=== PATIENT | female | born 1990 | race Caucasian/White ===

== ENCOUNTER 2016-09-06 21:59 | Emergency (ER) | payer OTHER ==
[2016-09-06 22:15] VITALS: BP 121/91
[2016-09-06] MEDS ORDERED: Ondansetron 4 MG/2 ML SDV IVPUSH ONE (23:01)
[2016-09-06] MEDS ORDERED: Sodium Chloride 0.9% 1,000 ML IV SCH (23:15)
--- NOTE | 2016-09-06 23:31 | EDM.PDOC ---
ED HPI GENERAL MEDICAL PROBLEM - General Chief Complaint: Gastrointestinal Problem Stated Complaint: VOMITING Time Seen by Provider: 09/06/16 22:35 Source of Information: Reports: Patient, Family History Limitations: Reports: No Limitations - History of Present Illness INITIAL COMMENTS - FREE TEXT/NARRATIVE: This is a 26-year-old female. She ate at [employer] around 2 PM this afternoon some shrimp and chicken broccoli and potatoes and then around 7:53 PM had onset of nausea and vomiting. She vomited up all the food she ate at 2 PM she says. Since that time she feels okay but she does periodically starts to vomit again more now clear liquid and bile. She is approximately 20 weeks had no problems with the denies any vaginal discharge or bleeding denies any abdominal pain. She had no history of morning sickness with this . As we spoke about her symptoms and the onset of the nausea and vomiting I believe it's related to the food that she ate not from her . 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 (see below) Other Treatments RESIDENTIAL FRAMING CARPENTER: dramamine - Related Data Allergies Allergy/AdvReac Type Severity Reaction Status Date / Time No Known Allergies Allergy Verified 09/06/16 22:10 Home Meds: Home Meds Ondansetron [Zofran ODT] 4 mg PO Q6H PRN #1 tab.dis 09/07/16 [Rx] Past Medical History - Past Health History Medical/Surgical History: Denies Medical/Surgical History Social & Family History - Family History Family Medical History: Noncontributory - Tobacco Use Smoking Status *Q: Never Smoker Second Hand Smoke Exposure: No - Caffeine Use Caffeine Use: Reports: Coffee - Recreational Drug Use Recreational Drug Use: No ED ROS GENERAL - Review of Systems Review Of Systems: See Below Constitutional: Reports: Fever, Chills HEENT: Reports: No Symptoms Respiratory: Denies: Shortness of Breath, Wheezing Cardiovascular: Reports: No Symptoms Endocrine: Reports: No Symptoms GI/Abdominal: Reports: Nausea, Vomiting, Other (Patient is gravid). Denies: Abdominal Pain, Diarrhea : Reports: No Symptoms Musculoskeletal: Reports: No Symptoms Skin: Reports: No Symptoms Neurological: Reports: No Symptoms Psychiatric: Reports: No Symptoms Hematologic/Lymphatic: Reports: No Symptoms Immunologic: Reports: No Symptoms ED EXAM, GI/ABD - Physical Exam Exam: See Below Exam Limited By: No Limitations General Appearance: Alert, WD/WN, No Apparent Distress Ears: Normal External Exam Nose: Normal Inspection Throat/Mouth: Normal Inspection, Normal Lips, Normal Voice Head: Normocephalic Neck: Supple Respiratory/Chest: No Respiratory Distress, Lungs Clear Cardiovascular: Regular Rate, Rhythm, No Murmur GI/Abdominal: Soft, Non-Tender, Other (Gravid uterus noted about belly button height) Back Exam: Full Range of Motion Extremities: Normal Inspection, Normal Range of Motion Neurological: Alert, Oriented Psychiatric: Normal Affect, Normal Mood Skin Exam: Warm, Dry Course - Vital Signs Last Recorded V/S: Last Vital Signs Temp 98.2 F 09/06/16 22:11 Pulse 82 09/06/16 22:11 Resp 18 09/06/16 22:11 BP 121/91 H 09/06/16 22:11 Pulse Ox 99 09/06/16 22:11 - Orders/Labs/Meds Orders: Active Orders 24 hr Category Date Time Status Sodium Chloride 0.9% [Normal Saline] 1,000 ml Med 09/06/16 23:15 Active IV ASDIRECTED Medication Orders Sodium Chloride (Normal Saline) 1,000 mls @ 1,000 mls/hr IV ASDIRECTED LISANDRO Last Admin: 09/06/16 23:24 Dose: 1,000 mls/hr Meds: Medications Generic Name Dose Route Start Last Admin Trade Name Freq PRN Reason Stop Dose Admin Sodium Chloride 1,000 mls @ 1,000 mls/hr 09/06/16 23:15 09/06/16 23:24 Normal Saline IV 1,000 mls/hr ASDIRECTED LISANDRO Administration Discontinued Medications Generic Name Dose Route Start Last Admin Trade Name Freq PRN Reason Stop Dose Admin Ondansetron HCl 4 mg 09/06/16 23:01 09/06/16 23:24 Zofran IVPUSH 09/06/16 23:02 4 mg ONETIME ONE Administration - Re-Assessments/Exams Free Text/Narrative Re-Assessment/Exam: 09/07/16 00:27 Patient is feeling good after the liter of fluids and we're going to let her go home Departure - Departure Time of Disposition: 00:27 Disposition: Home, Self-Care 01 Condition: Good Clinical Impression: Second trimester Nausea and vomiting Qualifiers: Vomiting type: unspecified Vomiting Intractability: non-intractable Qualified Code(s): R11.2 - Nausea with vomiting, unspecified Food poisoning Qualifiers: Encounter type: initial encounter Injury intent: accidental or unintentional Qualified Code(s): T62.91XA - Toxic effect of unspecified noxious substance eaten as food, accidental (unintentional), initial encounter - Discharge Information Referrals: Travis Wade MD [Primary Care Provider] - Forms: ED Department Discharge Additional Instructions: Drink lots of fluids over the next 24 hours and avoid sodas and caffeine, try to eat things are very easy to digest avoid meats and vegetables for the next 24 hours, if there is worsening of your symptoms or persistent nausea and vomiting return to the ER, follow up with your doctor later this week for recheck - My Orders Last 24 Hours: My Active Orders 09/06/16 23:15 Sodium Chloride 0.9% [Normal Saline] 1,000 ml IV ASDIRECTED - Assessment/Plan Last 24 Hours: My Active Orders 09/06/16 23:15 Sodium Chloride 0.9% [Normal Saline] 1,000 ml IV ASDIRECTED
[2016-09-07] MEDS ORDERED: Ondansetron 4 MG Tab.DIS PO ONE (00:32)
== END 2016-09-07 00:35 | disposition home or self-care (01) ==
LOC: JD.ED 21:59
DX: O21.9 Vomiting of pregnancy, unspecified (principal); O9A.212 Injury, poisoning and certain other consequences of external causes complicating pregnancy, second trimester; T62.91XA Toxic effect of unspecified noxious substance eaten as food, accidental (unintentional), initial encounter; Z3A.20 20 weeks gestation of pregnancy
CPT/HCPCS: 96361; 96374; 99284; A9270; J2405; J7040

== ENCOUNTER 2017-01-22 07:04 | Inpatient (IN) | payer MEDICAID, OTHER ==
[2017-01-22] MEDS ORDERED: Misoprostol 25 MCG (1/4 of 100 MCG) Tab ONE (07:59)
[2017-01-22] MEDS: Misoprostol 25 MCG (1/4 of 100 MCG) Tab VAG SCH ×4 (08:00→17:25)
[2017-01-22] MEDS ORDERED: Sodium Chloride 0.9% 10 ML Syringe FLUSH PRN (08:11)
[2017-01-22] MEDS ORDERED: Nalbuphine 20 MG/1 ML Amp IVPUSH PRN (08:11)
[2017-01-22] MEDS ORDERED: Oxytocin 10 Units/1 ML SDV IM ONE (08:11)
[2017-01-22] MEDS ORDERED: Ondansetron 4 MG/2 ML SDV IVPUSH PRN (08:11)
--- NOTE | 2017-01-22 08:24 | PCM.LDHP ---
L&D History of Present Illness - General Date of Service: 01/22/17 Admit Problem/Dx: Patient Status Order with Admit Dx/Problem 01/22/17 08:11 Patient Status [ADT] Routine Admission Diagnosis/Problem Admission Diagnosis/Problem Source of Information: Patient History Limitations: Reports: No Limitations - History of Present Illness Introduction:: 6-year-old ALICIA 01/24/2017 estimated gestational age 39 weeks 5 days presented to labor and delivery for induction of labor GBS negative and has had flu vaccine and TdAP. Oh positive, antibody screen negative. Hemoglobin hematocrit 07/10/1711.3/35.1 platelets 276,000 rubella titer immune, RPR nonreactive, urine culture mixed marilu, hepatitis B surface antigen negative, HIV negative, GC and chlamydia probe negative. 28 week labs on 10/21/16 hemoglobin 11.2 hematocrit 32.7 platelets 228,000, 1 hour OB glucose screen 91. Group B strep negative on 01/29/17. Admitted for induction of labor. Improves with: Reports: None Worsens with: Reports: None Associated Symptoms: Reports: N - Related Data Allergies/Adverse Reactions: Allergies Allergy/AdvReac Type Severity Reaction Status Date / Time No Known Allergies Allergy Verified 09/06/16 22:10 Past Medical History - Past Health History Medical/Surgical History: Denies Medical/Surgical History : 1 Para: 0 (0000) LMP (Approximate): Social & Family History - Family History Family Medical History: Noncontributory - Tobacco Use Smoking Status *Q: Never Smoker Second Hand Smoke Exposure: No - Caffeine Use Caffeine Use: Reports: Coffee - Recreational Drug Use Recreational Drug Use: No H&P Review of Systems - Review of Systems: Review Of Systems: See Below General: Reports: No Symptoms HEENT: Reports: No Symptoms Pulmonary: Reports: No Symptoms Cardiovascular: Reports: No Symptoms Gastrointestinal: Reports: No Symptoms Genitourinary: Reports: No Symptoms Musculoskeletal: Reports: No Symptoms Skin: Reports: No Symptoms Psychiatric: Reports: No Symptoms Neurological: Reports: No Symptoms Hematologic/Lymphatic: Reports: No Symptoms Immunologic: Reports: No Symptoms L&D Exam - Exam Exam: See Below - OB Specific Fundal Height In cm: 39 Movement: Active Heart Tones: Present Heart Tones per Min: 135 Heart Rate (FHR) Variability: Moderate (6-25 bmp) Presentation: Vertex - Samuels Score Samuels Score Cervix Position: Posterior Samuels Score Consistency: Soft Samuels Score Effacement: 31-50% Samuels Score Dilation: 1-2 cm Samuels Score 's Station: -1 ,0 Samuels Score Total: 6 - Exam General: Alert, Oriented HEENT: Conjunctiva Clear, Mucosa Moist & [place], PERRLA Neck: Supple, Trachea Midline Lungs: Clear to Auscultation, Normal Respiratory Effort Cardiovascular: Regular Rate, Regular Rhythm GI/Abdominal Exam: Normal Bowel Sounds, Soft, Non-Tender, No Organomegaly ( Except for gravid uterus.), No Distention, No Abnormal Bruit Genitourinary: Normal external exam, Normal bimanual exam, Normal speculum exam Extremities: Normal Inspection, Normal Range of Motion, Non-Tender, No Pedal Edema, Normal Capillary Refill Skin: Warm, Dry, Intact Neurological: Reflexes Equal Bilateral Psychiatric: Alert, Normal Affect, Normal Mood - Problem List (1) 39 weeks gestation of SNOMED Code(s): 54260019 ICD Code: Z3A.39 - 39 WEEKS GESTATION OF Status: Acute Current Visit: Yes Problem List Initiated/Reviewed/Updated: No Orders Last 24hrs: Active Orders 24 hr Category Date Time Status Patient Status [ADT] Routine ADT 01/22/17 08:11 Ordered Activity as Tolerated [RC] PFP Care 01/22/17 08:11 Ordered Communication Order [RC] ASDIRECTED Care 01/22/17 08:11 Ordered Heart Tones [RC] ASDIRECTED Care 01/22/17 08:12 Ordered Height and Weight [RC] UPON Care 01/22/17 08:11 Ordered Notify Provider [RC] PFP Care 01/22/17 08:11 Ordered Notify Provider [RC] PRN Care 01/22/17 08:11 Ordered Peripheral IV Care [RC] . DIRECTED Care 01/22/17 08:12 Ordered Pump Management, Intrathecal [RC] ASDIRECTED Care 01/22/17 08:13 Ordered Vital Signs [RC] PER UNIT ROUTINE Care 01/22/17 08:11 Ordered Clear Liquid Diet [DIET] Diet 01/22/17 Breakfast Ordered CBC W/O DIFF,HEMOGRAM [HEME] Stat Lab 01/22/17 08:11 Ordered TYPE AND SCREEN [BBK] Stat Lab 01/22/17 08:11 Ordered Lactated Ringers [Ringers, Lactated] 1,000 ml Med 01/22/17 08:15 Ordered IV ASDIRECTED Misoprostol [Cytotec] Med 01/22/17 08:15 Ordered 25 mcg VAG Q3H Nalbuphine [Nubain] Med 01/22/17 08:11 Ordered 10 mg IVPUSH Q2H PRN Ondansetron [Zofran] Med 01/22/17 08:11 Ordered 4 mg IVPUSH Q4H PRN Oxytocin [Pitocin] Med 01/22/17 08:11 Once 10 unit IM ONETIME ONE Oxytocin [Pitocin] 20 unit Med 01/22/17 08:15 Ordered Lactated Ringers [Ringers, Lactated] 1,000 ml IV TITRATE Sodium Chloride 0.9% [Saline Flush] Med 01/22/17 08:11 Ordered 10 ml FLUSH ASDIRECTED PRN Electronic Heart Tones Ext w TOCO [WOMSER] Oth 01/22/17 08:11 Ordered Routine Electronic Heart Tones Internal [WOMSER] Per Unit Oth 01/22/17 08:11 Ordered Routine Peripheral IV Insertion Adult [OM.PC] Routine Oth 01/22/17 08:11 Ordered Resuscitation Status Routine Resus Stat 01/22/17 08:11 Ordered
[2017-01-22] MEDS ORDERED: diphenhydrAMINE 50 MG/ML SDV IVPUSH PRN (09:16)
[2017-01-22] MEDS ORDERED: fentaNYL 100 MCG/2 ML SDV EPIDUR PRN (09:16)
[2017-01-22] MEDS ORDERED: ePHEDrine 50 MG/ML SDV IVPUSH PRN (09:16)
[2017-01-22] MEDS ORDERED: Bupivacaine/fentaNYL/NS 100 ML Bag EPIDUR SCH (09:30)
--- NOTE | 2017-01-22 12:38 | PCM.SN ---
- Free Text/Narrative Note: Cervix is unchanged at 1 cm, 50% effaced, soft, posterior, vertex -1 station. And has had second dose of Cytotec 25 g at 1100 hrs. Plan repeat cytotech at 1400 and 1700 hrs. and again probably at 2000 hrs. and then may be start Pitocin at midnight. Having irregular contractions but not feeling them. heart tones category 1.
--- NOTE | 2017-01-22 15:03 | PCM.SN ---
- Free Text/Narrative Note: Cervix unchanged at 1400 hrs. when third Cytotec placed. Will plan repeat Cytotec 25 g at 1700 and again at 2000 hrs. and then begin Pitocin at midnight. Talked with the patient about the plan.
[2017-01-22] MEDS ORDERED: Misoprostol 25 MCG (1/4 of 100 MCG) Tab VAG SCH (17:45)
[2017-01-22] MEDS ORDERED: Misoprostol 25 MCG (1/4 of 100 MCG) Tab VAG ONE (21:05)
[2017-01-23] MEDS ORDERED: Oxytocin/Lactated Ringers 10 UNIT/1,000 ML BAG IV SCH
[2017-01-23] MEDS: Lactated Ringers 1,000 ML IV SCH ×2 (00:18→05:16)
--- NOTE | 2017-01-23 04:26 | PCM.PREANE ---
Preanesthetic Assessment - Anesthesia/Transfusion/Family Hx Anesthesia History: No Prior Anesthesia Family History of Anesthesia Reaction: No Transfusion History: No Prior Transfusion(s) - Review of Systems General: No Symptoms Pulmonary: No Symptoms Cardiovascular: No Symptoms Gastrointestinal: No Symptoms Neurological: No Symptoms Other: Reports: None - Physical Assessment Respiratory Rate: 15 Vital Signs: Last Vital Signs Temp 36.8 C 01/22/17 08:11 Pulse 84 01/22/17 08:11 Resp 15 01/22/17 08:11 BP 134/81 01/22/17 08:11 Pulse Ox Height: 1.6 m Weight: 78.925 kg ASA Class: 2 Mental Status: Alert & Oriented x3 Airway Class: Mallampati = 1 Dentition: Reports: Normal Dentition Thyro-Mental Finger Breadths: 3 Mouth Opening Finger Breadths: 3 ROM/Head Extension: Full Lungs: Clear to Auscultation, Normal Respiratory Effort Cardiovascular: Regular Rate, Regular Rhythm - Lab Values: Laboratory Last Values WBC 7.68 K/mm3 (3.98-10.04) 01/22/17 08:31 RBC 3.89 M/mm3 (3.98-5.22) L 01/22/17 08:31 Hgb 12.0 gm/L (11.2-15.7) 01/22/17 08:31 Hct 34.7 % (34.1-44.9) 01/22/17 08:31 MCV 89.2 fl (79.4-94.8) 01/22/17 08:31 MCH 30.8 pg (25.6-32.2) 01/22/17 08:31 MCHC 34.6 g/dl (32.2-35.5) 01/22/17 08:31 RDW Std Deviation 40.7 fL (36.4-46.3) 01/22/17 08:31 Plt Count 202 K/mm3 (182-369) 01/22/17 08:31 MPV 9.9 fl (9.4-12.3) 01/22/17 08:31 Blood Type O POSITIVE 01/22/17 08:31 Gel Antibody Screen Negative 01/22/17 08:31 - Allergies Allergies/Adverse Reactions: Allergies Allergy/AdvReac Type Severity Reaction Status Date / Time No Known Allergies Allergy Verified 09/06/16 22:10 - Anesthesia Plan Pre-Op Medication Ordered: None - Acknowledgements Anesthesia Type Planned: Epidural Pt an Appropriate Candidate for the Planned Anesthesia: Yes Alternatives and Risks of Anesthesia Discussed w Pt/Guardian: Yes Pt/Guardian Understands and Agrees with Anesthesia Plan: Yes PreAnesthesia Questionnaire - Past Health History Medical/Surgical History: Denies Medical/Surgical History Gastrointestinal History: Reports: GERD 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 Smoking Status *Q: Never Smoker Second Hand Smoke Exposure: No Recreational Drug Use History: No - CURRENT (IN HOUSE) MEDS Current Meds: Current Medications Diphenhydramine HCl (Benadryl) 25 mg IVPUSH Q6H PRN PRN Reason: Itching Ephedrine Sulfate (Ephedrine Sulfate) 5 mg IVPUSH ASDIRECTED PRN PRN Reason: HYPOTENTSION Fentanyl (Sublimaze) 100 mcg EPIDUR Q3H PRN PRN Reason: PAIN Last Admin: 01/23/17 04:21 Dose: 100 mcg Fentanyl/Bupivacaine HCl (Fentanyl/Bupivacaine/Ns 2 Mcg-0.125% 100 Ml) 100 ml EPIDUR ASDIRECTED LISANDRO Last Admin: 01/23/17 04:22 Dose: 100 ml Lactated Ringer's (Ringers, Lactated) 1,000 mls @ 100 mls/hr IV ASDIRECTED LISANDRO Last Admin: 01/23/17 00:18 Dose: 100 mls/hr Oxytocin 20 unit/ Lactated (Ringer's) 1,002 mls @ 6.01 mls/hr IV TITRATE LISANDRO; 2 MUNITS/MIN PRN Reason: Protocol Oxytocin 20 unit/ Lactated (Ringer's) 1,002 mls @ 500 mls/hr IV TITRATE LISANDRO Oxytocin/Lactated Ringer's (Pitocin In Lr 10 Units/1,000 Ml) 10 unit in 1,000 mls @ 12 mls/hr IV TITRATE LISANDRO; 2 MUNITS/MIN PRN Reason: Protocol Last Titration: 01/23/17 01:49 Dose: 5 munits/min, 30 mls/hr Misoprostol (Cytotec) 25 mcg VAG .ONETIME LISANDRO Nalbuphine HCl (Nubain) 10 mg IVPUSH Q2H PRN PRN Reason: Pain (moderate 4-6) Ondansetron HCl (Zofran) 4 mg IVPUSH Q4H PRN PRN Reason: Nausea/Vomiting Sodium Chloride (Saline Flush) 10 ml FLUSH ASDIRECTED PRN PRN Reason: Keep Vein Open Discontinued Medications Misoprostol (Cytotec) Confirm Administered Dose 25 mcg .ROUTE .STK-MED ONE Stop: 01/22/17 08:00 Last Admin: 01/22/17 17:36 Dose: Not Given Misoprostol (Cytotec) 25 mcg VAG Q3H LISANDRO Stop: 01/22/17 17:16 Last Admin: 01/22/17 17:25 Dose: 25 mcg Misoprostol (Cytotec) 25 mcg VAG ONETIME ONE Stop: 01/22/17 21:06 Last Admin: 01/22/17 21:18 Dose: 25 mcg Oxytocin (Pitocin) 10 unit IM ONETIME ONE Stop: 01/22/17 08:12
[2017-01-23] MEDS ORDERED: Lidocaine 1% 50 ML MDV ONE (07:29)
[2017-01-23] MEDS ORDERED: Misoprostol 200 MCG Tab ONE ×2 (07:34→07:35)
[2017-01-23] MEDS ORDERED: Methylergonovine 0.2 MG/1 ML Amp ONE (07:48)
--- NOTE | 2017-01-23 08:04 | PCM.DEL ---
L & D Note - General Info Date of Service: 01/23/17 Mother's Due Date: 01/24/17 - Delivery Note Labor: Spontaneous, Augmented by Oxytocin Cervical Ripening Method: Misoprostil Delivery Outcome: Livebirth (Male liveborn 0728 hrs. on Thursday01/23/17 at 0728 hrs. VIANCA. Weight 3300 g/7 pounds 4.4 ounces Apgars 8/9. Nuchal cord 1 tight) Delivery Method: Spontaneous Vaginal Delivery-Single Delivery Mode: Spontaneous Presentation: Left Occiput Anterior (VIANCA) Nuchal Cord: Present (Tight reduced over shoulders.) Prep: Povidone-Iodine (Betadine Anesthesia Type: Local, Epidural Anesthetic: Lidocaine (Xylocaine) 1% Plain (15 mL total) Amniotic Fluid Description: Clear Episiotomy Type: None Laceration: 1st Degree (Midline sutured and 2 labia minora medial at the level of the urethra not sutured not bleeding) Suture type: Vicryl (301), Other (Monocryl 30 2) Suture size: 3-0 Placenta: Intact, Spontaneous (Placenta delivered at 0732 hrs. on Thursday, Hilda, examined and tacked discarded central cord insertion.) Cord: 3 Vessels Estimated Blood Loss: 750 (Massage Cytotec 4 g buccal Methergine 0.2 IM oxytocin dilute 20 per 1000) Resuscitation Needed: No : Suctioned, Bulb Syringe, Stimulated, Warmed, [place] Used, Warmer Used Provider: Travis Wade Score 1 min: 8 Score 5 min: 9 - Patient Data Vitals - Most Recent: Last Vital Signs Temp 98.3 F 01/22/17 08:11 Pulse 84 01/22/17 08:11 Resp 15 01/23/17 04:26 BP 134/81 01/22/17 08:11 Pulse Ox Weight - Most Recent: 174 lb Lab Results Last 24 Hours: Laboratory Results - last 24 hr 01/22/17 01/22/17 Range/Units 08:31 08:31 WBC 7.68 (3.98-10.04) K/mm3 RBC 3.89 L (3.98-5.22) M/mm3 Hgb 12.0 (11.2-15.7) gm/L Hct 34.7 (34.1-44.9) % MCV 89.2 (79.4-94.8) fl MCH 30.8 (25.6-32.2) pg MCHC 34.6 (32.2-35.5) g/dl RDW Std Deviation 40.7 (36.4-46.3) fL Plt Count 202 (182-369) K/mm3 MPV 9.9 (9.4-12.3) fl Blood Type O POSITIVE Gel Antibody Screen Negative Med Orders - Current: Current Medications Diphenhydramine HCl (Benadryl) 25 mg IVPUSH Q6H PRN PRN Reason: Itching Ephedrine Sulfate (Ephedrine Sulfate) 5 mg IVPUSH ASDIRECTED PRN PRN Reason: HYPOTENTSION Fentanyl (Sublimaze) 100 mcg EPIDUR Q3H PRN PRN Reason: PAIN Last Admin: 01/23/17 04:21 Dose: 100 mcg Fentanyl/Bupivacaine HCl (Fentanyl/Bupivacaine/Ns 2 Mcg-0.125% 100 Ml) 100 ml EPIDUR ASDIRECTED LISANDRO Last Admin: 01/23/17 04:22 Dose: 100 ml Lactated Ringer's (Ringers, Lactated) 1,000 mls @ 100 mls/hr IV ASDIRECTED LISANDRO Last Admin: 01/23/17 05:16 Dose: 100 mls/hr Oxytocin 20 unit/ Lactated (Ringer's) 1,002 mls @ 6.01 mls/hr IV TITRATE LISANDRO; 2 MUNITS/MIN PRN Reason: Protocol Oxytocin 20 unit/ Lactated (Ringer's) 1,002 mls @ 500 mls/hr IV TITRATE LISANDRO Oxytocin/Lactated Ringer's (Pitocin In Lr 10 Units/1,000 Ml) 10 unit in 1,000 mls @ 12 mls/hr IV TITRATE LISANDRO; 2 MUNITS/MIN PRN Reason: Protocol Last Titration: 01/23/17 01:49 Dose: 5 munits/min, 30 mls/hr Misoprostol (Cytotec) 25 mcg VAG .ONETIME LISANDRO Nalbuphine HCl (Nubain) 10 mg IVPUSH Q2H PRN PRN Reason: Pain (moderate 4-6) Ondansetron HCl (Zofran) 4 mg IVPUSH Q4H PRN PRN Reason: Nausea/Vomiting Sodium Chloride (Saline Flush) 10 ml FLUSH ASDIRECTED PRN PRN Reason: Keep Vein Open Discontinued Medications Lidocaine HCl (Xylocaine 1%) Confirm Administered Dose 50 ml .ROUTE .STK-MED ONE Stop: 01/23/17 07:30 Methylergonovine Maleate (Methergine) Confirm Administered Dose 0.2 mg .ROUTE .STK-MED ONE Stop: 01/23/17 07:49 Misoprostol (Cytotec) Confirm Administered Dose 25 mcg .ROUTE .STK-MED ONE Stop: 01/22/17 08:00 Last Admin: 01/22/17 17:36 Dose: Not Given Misoprostol (Cytotec) 25 mcg VAG Q3H LISANDRO Stop: 01/22/17 17:16 Last Admin: 01/22/17 17:25 Dose: 25 mcg Misoprostol (Cytotec) 25 mcg VAG ONETIME ONE Stop: 01/22/17 21:06 Last Admin: 01/22/17 21:18 Dose: 25 mcg Misoprostol (Cytotec) Confirm Administered Dose 200 mcg .ROUTE .STK-MED ONE Stop: 01/23/17 07:35 Misoprostol (Cytotec) Confirm Administered Dose 200 mcg .ROUTE .STK-MED ONE Stop: 01/23/17 07:36 Oxytocin (Pitocin) 10 unit IM ONETIME ONE Stop: 01/22/17 08:12 - Problem List & Annotations (1) 39 weeks gestation of SNOMED Code(s): 02759132 Code(s): Z3A.39 - 39 WEEKS GESTATION OF Status: Acute Current Visit: Yes (2) First degree laceration of perineum, delivered, current hospitalization SNOMED Code(s): 854660962 Code(s): O70.0 - FIRST DEGREE PERINEAL LACERATION DURING DELIVERY Status: Acute Current Visit: Yes (3) Nuchal cord with compression, delivered, current hospitalization SNOMED Code(s): 027780060 Code(s): O69.1XX0 - LABOR AND DELIVERY COMP BY CORD AROUND NECK, W COMPRSN, UNSP Status: Acute Current Visit: Yes - Problem List Review Problem List Initiated/Reviewed/Updated: No - My Orders Last 24 Hours: My Active Orders 01/22/17 08:11 Patient Status [ADT] Routine Activity as Tolerated [RC] PFP Communication Order [RC] ASDIRECTED Height and Weight [RC] UPON Notify Provider [RC] PFP Notify Provider [RC] PRN Vital Signs [RC] PER UNIT ROUTINE Nalbuphine [Nubain] 10 mg IVPUSH Q2H PRN Ondansetron [Zofran] 4 mg IVPUSH Q4H PRN Sodium Chloride 0.9% [Saline Flush] 10 ml FLUSH ASDIRECTED PRN Electronic Heart Tones Ext w TOCO [WOMSER] Routine Electronic Heart Tones Internal [WOMSER] Per Unit Routine Peripheral IV Insertion Adult [OM.PC] Routine Resuscitation Status Routine 01/22/17 08:12 Heart Tones [RC] ASDIRECTED Peripheral IV Care [RC] . DIRECTED 01/22/17 08:13 Pump Management, Intrathecal [RC] ASDIRECTED 01/22/17 08:15 Lactated Ringers [Ringers, Lactated] 1,000 ml IV ASDIRECTED Oxytocin [Pitocin] 20 unit Lactated Ringers [Ringers, Lactated] 1,000 ml IV TITRATE 01/22/17 17:45 Misoprostol [Cytotec] 25 mcg VAG .ONETIME Oxytocin [Pitocin] 20 unit Lactated Ringers [Ringers, Lactated] 1,000 ml IV TITRATE 01/22/17 Breakfast Clear Liquid Diet [DIET] 01/23/17 00:00 Oxytocin/Lactated Ringers [Pitocin in LR 10 Units/1,000 ML] 10 unit in 1,000 ml IV TITRATE
[2017-01-23] MEDS ORDERED: Methylergonovine 0.2 MG/1 ML Amp IM PRN (08:18)
[2017-01-23] MEDS ORDERED: Misoprostol 200 MCG Tab PO STA (08:29)
[2017-01-23] MEDS ORDERED: Lidocaine 1% 50 ML MDV INJECT ONE (08:30)
[2017-01-23] MEDS ORDERED: Simethicone 80 MG Tab.Chew PO PRN (08:54)
[2017-01-23] MEDS ORDERED: Lanolin 100% Cream 7 GM Tube TOP PRN (08:54)
[2017-01-23] MEDS ORDERED: Docusate Sodium 100 MG Cap PO PRN (08:54)
[2017-01-23] MEDS ORDERED: Benzocaine/Menthol 20%-0.5% Spray 56 GM Canister TOP PRN (08:54)
[2017-01-23] MEDS ORDERED: Witch Hazel Medicated Pads 100/Jar TOP PRN (08:54)
[2017-01-23] MEDS ORDERED: Acetaminophen 325 MG Tab PO PRN (08:54)
[2017-01-23] MEDS ORDERED: Acetaminophen/oxyCODONE 325-5 MG Tab PO PRN (08:54)
[2017-01-23] MEDS ORDERED: Bupivacaine 0.25% 10 ML SDV ONE (09:00)
--- NOTE | 2017-01-23 15:22 | PCM48HPAN ---
Post Anesthesia Note - EVALUATION WITHIN 48HRS OF ANESTHETIC Vital Signs in Normal Range: Yes Patient Participated in Evaluation: Yes Respiratory Function Stable: Yes Airway Patent: Yes Cardiovascular Function Stable: Yes Hydration Status Stable: Yes Pain Control Satisfactory: Yes Nausea and Vomiting Control Satisfactory: Yes Mental Status Recovered: Yes - COMMENTS/OBSERVATIONS Free Text/Narrative:: Kathrine is up walking. She denies headache, back pain, and/or numbness and tingling in her legs. No further questions at this time. No complications noted.
[2017-01-23] MEDS: Ibuprofen 600 MG Tab PO PRN (15:25)
[2017-01-24 06:33] VITALS: BP 103/54
--- NOTE | 2017-01-24 10:07 | PCM.SN ---
- Free Text/Narrative Note: Post Progress Note PPD # 1 Subjective: Doing well overall. Ambulating without difficulty. Denies any dizziness or lightheadedness. Lochia minimal and decreasing throughout the day. Voiding without difficulty. Tolerating regular diet. Pain controlled with oral medications. Breast feeding with minimal difficulty. Denies any fevers or chills Objective: Vitals: Last Vital Signs Temp 36.7 C 01/24/17 04:17 Pulse 95 01/24/17 04:17 Resp 14 01/24/17 04:17 BP 103/54 L 01/24/17 04:17 Pulse Ox 98 01/24/17 04:17 Physical Exam General: Alert and oriented, no acute distress Lungs: Clear to auscultation bilaterally Heart: Regular rate and rhythm Abdomen: Soft, minimal appropriate tenderness, non-distended, fundus midline, nontender, and below the umbilicus Extremities: No edema ASSESSMENT: 26-year-old female G 1 P 1001 s/p normal vaginal delivery PPD #1, complicated by hemorrhage PLAN: Doing well Breast feeding with minimal difficulty. Assist as needed Lochia minimal. Continue to monitor for appropriate lochia. Continue routine care Anticipate discharge home today Rohan Boyle MD 10:06 AM 01/24/2017
--- NOTE | 2017-01-24 10:10 | PCM.DCSUM1 ---
Discharge Summary - Hospital Course Free Text/Narrative:: Labor: Spontaneous, Augmented by Oxytocin Cervical Ripening Method: Misoprostil Delivery Outcome: Livebirth (Male liveborn 0728 hrs. on Thursday01/23/17 at 0728 hrs. VIANCA. Weight 3300 g/7 pounds 4.4 ounces Apgars 8/9. Nuchal cord 1 tight) Delivery Method: Spontaneous Vaginal Delivery-Single Infant Delivery Mode: Spontaneous Presentation: Left Occiput Anterior (VIANCA) Nuchal Cord: Present (Tight reduced over shoulders.) Prep: Povidone-Iodine (Betadine Anesthesia Type: Local, Epidural Anesthetic: Lidocaine (Xylocaine) 1% Plain (15 mL total) Amniotic Fluid Description: Clear Episiotomy Type: None Laceration: 1st Degree (Midline sutured and 2 labia minora medial at the level of the urethra not sutured not bleeding) Suture type: Vicryl (301), Other (Monocryl 30 2) Suture size: 3-0 Placenta: Intact, Spontaneous (Placenta delivered at 0732 hrs. on Thursday, Hilda, examined and tacked discarded central cord insertion.) Cord: 3 Vessels Estimated Blood Loss: 750 (Massage Cytotec 4 g buccal Methergine 0.2 IM oxytocin dilute 20 per 1000) Resuscitation Needed: No [place]: Suctioned, Bulb Syringe, Stimulated, Warmed, Lamont Used, Warmer Used Provider: Travis Wade Score 1 min: 8 Score 5 min: 9 HPI Initial Comments: Labor: Spontaneous, Augmented by Oxytocin Cervical Ripening Method: Misoprostil Delivery Outcome: Livebirth (Male liveborn 0728 hrs. on Thursday01/23/17 at 0728 hrs. VIANCA. Weight 3300 g/7 pounds 4.4 ounces Apgars 8/9. Nuchal cord 1 tight) Delivery Method: Spontaneous Vaginal Delivery-Single Infant Delivery Mode: Spontaneous Presentation: Left Occiput Anterior (VIANCA) Nuchal Cord: Present (Tight reduced over shoulders.) Prep: Povidone-Iodine (Betadine Anesthesia Type: Local, Epidural Anesthetic: Lidocaine (Xylocaine) 1% Plain (15 mL total) Amniotic Fluid Description: Clear Episiotomy Type: None Laceration: 1st Degree (Midline sutured and 2 labia minora medial at the level of the urethra not sutured not bleeding) Suture type: Vicryl (301), Other (Monocryl 30 2) Suture size: 3-0 Placenta: Intact, Spontaneous (Placenta delivered at 0732 hrs. on Thursday, Hilda, examined and tacked discarded central cord insertion.) Cord: 3 Vessels Estimated Blood Loss: 750 (Massage Cytotec 4 g buccal Methergine 0.2 IM oxytocin dilute 20 per 1000) Resuscitation Needed: No : Suctioned, Bulb Syringe, Stimulated, Warmed, Lamont Used, Warmer Used Provider: Travis Wade Score 1 min: 8 Score 5 min: 9 Brief History: Labor: Spontaneous, Augmented by Oxytocin. Cervical Ripening Method: Misoprostil. Delivery Outcome: Livebirth (Male liveborn 0728 hrs. on Thursday01/23/17 at 0728 hrs. VIANCA. Weight 3300 g/7 pounds 4.4 ounces Apgars 8/9. Nuchal cord 1 tight). Delivery Method: Spontaneous Vaginal Delivery- Single. Infant Delivery Mode: Spontaneous. Presentation: Left Occiput Anterior (VIANCA). Nuchal Cord: Present (Tight reduced over shoulders.). Prep: Povidone-Iodine (Betadine. Anesthesia Type: Local, Epidural. Anesthetic: Lidocaine (Xylocaine) 1% Plain (15 mL total). Amniotic Fluid Description: Clear. Episiotomy Type: None. Laceration: 1st Degree (Midline sutured and 2 labia minora medial at the level of the urethra not sutured not bleeding). Suture type: Vicryl (301), Other (Monocryl 30 2). Suture size: 3-0. Placenta : Intact, Spontaneous (Placenta delivered at 0732 hrs. on Thursday01/23/17, Hilda, examined and tacked discarded central cord insertion.). Cord: 3 Vessels. Estimated Blood Loss: 750 (Massage Cytotec 4 g buccal Methergine 0.2 IM oxytocin dilute 20 per 1000). Resuscitation Needed: No. [place]: Suctioned , Bulb Syringe, Stimulated, Warmed, Lamont Used, Warmer Used. Provider: Travis Wade. Score 1 min: 8. Score 5 min: 9 - Discharge Data Discharge Date: 01/24/17 Discharge Disposition: Home, Self-Care 01 Condition: Good - Discharge Diagnosis/Problem(s) (1) hemorrhage SNOMED Code(s): 19921755 ICD Code: O72.1 - OTHER IMMEDIATE HEMORRHAGE Status: Acute Current Visit: Yes (2) Vaginal delivery SNOMED Code(s): 171418927 ICD Code: O80 - ENCOUNTER FOR FULL-TERM UNCOMPLICATED DELIVERY Status: Acute Current Visit: Yes (3) 39 weeks gestation of SNOMED Code(s): 49907063 ICD Code: Z3A.39 - 39 WEEKS GESTATION OF Status: Acute Current Visit: Yes (4) First degree laceration of perineum, delivered, current hospitalization SNOMED Code(s): 895044394 ICD Code: O70.0 - FIRST DEGREE PERINEAL LACERATION DURING DELIVERY Status: Acute Current Visit: Yes (5) Nuchal cord with compression, delivered, current hospitalization SNOMED Code(s): 500778069 ICD Code: O69.1XX0 - LABOR AND DELIVERY COMP BY CORD AROUND NECK, W COMPRSN, UNSP Status: Acute Current Visit: Yes - Patient Summary/Data Operative Procedure(s) Performed: None Complications: hemorrhage Consults: None Hospital Course: Labor: Spontaneous, Augmented by Oxytocin Cervical Ripening Method: Misoprostil Delivery Outcome: Livebirth (Male liveborn 0728 hrs. on Thursday01/23/17 at 0728 hrs. VIANCA. Weight 3300 g/7 pounds 4.4 ounces Apgars 8/9. Nuchal cord 1 tight) Delivery Method: Spontaneous Vaginal Delivery-Single Delivery Mode: Spontaneous Presentation: Left Occiput Anterior (VIANCA) Nuchal Cord: Present (Tight reduced over shoulders.) Prep: Povidone-Iodine (Betadine Anesthesia Type: Local, Epidural Anesthetic: Lidocaine (Xylocaine) 1% Plain (15 mL total) Amniotic Fluid Description: Clear Episiotomy Type: None Laceration: 1st Degree (Midline sutured and 2 labia minora medial at the level of the urethra not sutured not bleeding) Suture type: Vicryl (301), Other (Monocryl 30 2) Suture size: 3-0 Placenta: Intact, Spontaneous (Placenta delivered at 0732 hrs. on Thursday, Hilda examined and tacked discarded central cord insertion.) Cord: 3 Vessels Estimated Blood Loss: 750 (Massage Cytotec 4 g buccal Methergine 0.2 IM oxytocin dilute 20 per 1000) Resuscitation Needed: No [place]: Suctioned, Bulb Syringe, Stimulated, Warmed, Lamont Used, Warmer Used Provider: Travis Wade Score 1 min: 8 Score 5 min: 9 Patient did well following delivery. She was meeting all milestones. She was ambulating without difficulty. She was tolerating regular diet without any nausea or vomiting. Her lochia was minimal. She denied any fevers or chills. She is breast-feeding without difficulty. She desired to be discharged home in the morning of day #1. She will follow up with Dr. Wade in 2 weeks or earlier as needed for her routine visit. - Patient Instructions Diet: Regular Diet as Tolerated Activity: As Tolerated Activity, Other: Nothing in the vagina for 2 weeks. Driving: May Drive Today Showering/Bathing: May Shower, No Tub Bathing/Swimming Notify Provider of: Fever, Increased Pain, Swelling and Redness, Drainage, Nausea and/or Vomiting - Discharge Plan Home Medications: Home Meds Acetaminophen [Tylenol] 650 mg PO Q6H PRN tablet 01/24/17 [Rx] Benzocaine/Menthol [Dermoplast Pain Relief [place]] 1 spray TOP ASDIRECTED PRN canister 01/24/17 [Rx] Docusate Sodium [Colace] 100 mg PO BID PRN cap 01/24/17 [Rx] Ferrous Sulfate 325 mg PO BIDMEALS tablet 01/24/17 [Rx] Ibuprofen [IJD: Ibuprofen] 600 mg PO Q6H PRN tablet 01/24/17 [Rx] Lanolin [Lansinoh HPA] 1 applic TOP ASDIRECTED PRN tube 01/24/17 [Rx] Witch [place] [Tucks] 1 pad TOP ASDIRECTED PRN pad 01/24/17 [Rx] Patient Handouts: Hemorrhage, Vaginal Delivery, Vaginal Laceration, Home Care Instructions for Mom, Vaginal Delivery, Care After, Pelvic Rest, Care of a Perineal Tear Referrals: Travis Wade MD [Primary Care Provider] - (Follow-up in 2 weeks or earlier as needed for visit.) - Discharge Summary/Plan Comment DC Time >30 min.: No - Patient Data Vitals - Most Recent: Last Vital Signs Temp 36.7 C 01/24/17 04:17 Pulse 95 01/24/17 04:17 Resp 14 01/24/17 04:17 BP 103/54 L 01/24/17 04:17 Pulse Ox 98 01/24/17 04:17 Weight - Most Recent: 78.925 kg I&O - Last 24 hours: Intake & Output 01/23/17 01/24/17 01/24/17 22:59 06:59 14:59 Intake Total 120 Balance 120 Lab Results - Last 24 hrs: Laboratory Results - last 24 hr 01/24/17 Range/Units 05:14 WBC 9.64 (3.98-10.04) K/mm3 RBC 2.75 L (3.98-5.22) M/mm3 Hgb 8.5 L (11.2-15.7) gm/L Hct 24.9 L (34.1-44.9) % MCV 90.5 (79.4-94.8) fl MCH 30.9 (25.6-32.2) pg MCHC 34.1 (32.2-35.5) g/dl RDW Std Deviation 40.1 (36.4-46.3) fL Plt Count 170 L (182-369) K/mm3 MPV 10.0 (9.4-12.3) fl Neut % (Auto) 65.7 (34.0-71.1) % Lymph % (Auto) 22.1 (19.3-51.7) % [place] % (Auto) 11.6 (4.7-12.5) % Eos % (Auto) 0.4 L (0.7-5.8) Baso % (Auto) 0.2 (0.1-1.2) % Neut # (Auto) 6.33 H (1.56-6.13) K/mm3 Lymph # (Auto) 2.13 (1.18-3.74) K/mm3 [place] # (Auto) 1.12 H (0.24-0.36) K/mm3 Eos # (Auto) 0.04 (0.04-0.36) K/mm3 Baso # (Auto) 0.02 (0.01-0.08) K/mm3 Med Orders - Current: Current Medications Acetaminophen (Tylenol) 650 mg PO Q4H PRN PRN Reason: mild pain or fever Benzocaine/Menthol (Dermoplast Pain Relief [place]) 0 gm TOP ASDIRECTED PRN PRN Reason: Perineal Comfort Measure Last Admin: 01/23/17 11:26 Dose: 1 can Docusate Sodium (Colace) 100 mg PO BID PRN PRN Reason: Constipation Emollient Ointment (Lansinoh Hpa) 0 gm TOP ASDIRECTED PRN PRN Reason: Sore Nipples Last Admin: 01/23/17 21:16 Dose: 1 applic Ferrous Sulfate (Ferrous Sulfate) 325 mg PO BIDMEALS LSIANDRO Ibuprofen (Motrin) 600 mg PO Q4H PRN PRN Reason: Mild pain or fever Last Admin: 01/23/17 15:25 Dose: 600 mg Methylergonovine Maleate (Methergine) 0.2 mg IM Q4H PRN PRN Reason: Bleeding Last Admin: 01/23/17 08:32 Dose: 0.2 mg Oxycodone/Acetaminophen (Percocet 325-5 Mg) 1 tab PO Q4H PRN PRN Reason: Pain (moderate 4-6) Simethicone (Simethicone) 80 mg PO Q4H PRN PRN Reason: Gas Witch [place] (Tucks) 1 pad TOP ASDIRECTED PRN PRN Reason: Hemorrhoid pain Last Admin: 01/23/17 11:26 Dose: 1 tub Discontinued Medications Bupivacaine HCl (Sensorcaine-Mpf 0.25%) 10 ml .ROUTE .K-MED ONE Stop: 01/23/17 09:01 Diphenhydramine HCl (Benadryl) 25 mg IVPUSH Q6H PRN PRN Reason: Itching Ephedrine Sulfate (Ephedrine Sulfate) 5 mg IVPUSH ASDIRECTED PRN PRN Reason: HYPOTENTSION Fentanyl (Sublimaze) 100 mcg EPIDUR Q3H PRN PRN Reason: PAIN Last Admin: 01/23/17 04:21 Dose: 100 mcg Fentanyl/Bupivacaine HCl (Fentanyl/Bupivacaine/Ns 2 Mcg-0.125% 100 Ml) 100 ml EPIDUR ASDIRECTED LISANDRO Last Admin: 01/23/17 04:22 Dose: 100 ml Lactated Ringer's (Ringers, Lactated) 1,000 mls @ 100 mls/hr IV ASDIRECTED LISANDRO Last Admin: 01/23/17 05:16 Dose: 100 mls/hr Oxytocin 20 unit/ Lactated (Ringer's) 1,002 mls @ 6.01 mls/hr IV TITRATE LISANDRO; 2 MUNITS/MIN PRN Reason: Protocol Oxytocin 20 unit/ Lactated (Ringer's) 1,002 mls @ 500 mls/hr IV TITRATE LISANDRO Last Admin: 01/23/17 07:30 Dose: 500 mls/hr Oxytocin/Lactated Ringer's (Pitocin In Lr 10 Units/1,000 Ml) 10 unit in 1,000 mls @ 12 mls/hr IV TITRATE LISANDRO; 2 MUNITS/MIN PRN Reason: Protocol Last Titration: 01/23/17 01:49 Dose: 5 munits/min, 30 mls/hr Lidocaine HCl (Xylocaine 1%) Confirm Administered Dose 50 ml .ROUTE .STK-MED ONE Stop: 01/23/17 07:30 Last Admin: 01/23/17 08:34 Dose: Not Given Lidocaine HCl (Xylocaine 1%) 50 ml INJECT ONETIME ONE Stop: 01/23/17 08:31 Last Admin: 01/23/17 08:33 Dose: 50 ml Methylergonovine Maleate (Methergine) Confirm Administered Dose 0.2 mg .ROUTE .STK-MED ONE Stop: 01/23/17 07:49 Last Admin: 01/23/17 08:33 Dose: Not Given Misoprostol (Cytotec) Confirm Administered Dose 25 mcg .ROUTE .STK-MED ONE Stop: 01/22/17 08:00 Last Admin: 01/22/17 17:36 Dose: Not Given Misoprostol (Cytotec) 25 mcg VAG Q3H LISANDRO Stop: 01/22/17 17:16 Last Admin: 01/22/17 17:25 Dose: 25 mcg Misoprostol (Cytotec) 25 mcg VAG .ONETIME LISANDRO Misoprostol (Cytotec) 25 mcg VAG ONETIME ONE Stop: 01/22/17 21:06 Last Admin: 01/22/17 21:18 Dose: 25 mcg Misoprostol (Cytotec) Confirm Administered Dose 200 mcg .ROUTE .STK-MED ONE Stop: 01/23/17 07:35 Last Admin: 01/23/17 08:33 Dose: Not Given Misoprostol (Cytotec) Confirm Administered Dose 200 mcg .ROUTE .STK-MED ONE Stop: 01/23/17 07:36 Last Admin: 01/23/17 08:33 Dose: Not Given Misoprostol (Cytotec) 400 mcg PO ONETIME STA Stop: 01/23/17 08:30 Last Admin: 01/23/17 07:35 Dose: 400 mcg Nalbuphine HCl (Nubain) 10 mg IVPUSH Q2H PRN PRN Reason: Pain (moderate 4-6) Ondansetron HCl (Zofran) 4 mg IVPUSH Q4H PRN PRN Reason: Nausea/Vomiting Last Admin: 01/23/17 08:14 Dose: 4 mg Oxytocin (Pitocin) 10 unit IM ONETIME ONE Stop: 01/22/17 08:12 Last Admin: 01/23/17 14:28 Dose: Not Given Sodium Chloride (Saline Flush) 10 ml FLUSH ASDIRECTED PRN PRN Reason: Keep Vein Open *Q Meaningful Use (DIS) - VTE *Q VTE Criteria *Q: - Stroke *Q Stroke Criteria *Q: - AMI *Q AMI Criteria *Q:
[2017-01-24] MEDS: Ibuprofen 600 MG Tab PO PRN (10:27)
[2017-01-24] MEDS ORDERED: Ferrous Sulfate 325 MG Tab PO SCH (17:00)
== END 2017-01-24 10:30 | disposition home or self-care (01) | DRG 775 ==
LOC: JD.OB 07:04 → JD.OBCHECK 07:04 → JD.OB 08:11 → OBSVTOIN 01-23 07:28
PROVIDERS: ADMIT Obstetrics & Gynecology; ATTEND Obstetrics & Gynecology
PROC: 10E0XZZ Delivery of Products of Conception, External Approach (ICD-10-PCS; principal; 2017-01-23)
PROC: 3E0P7VZ Introduction of Hormone into Female Reproductive, Via Natural or Artificial Opening (ICD-10-PCS; 2017-01-23)
PROC: 0HQ9XZZ Repair Perineum Skin, External Approach (ICD-10-PCS; 2017-01-23)
PROC: 00HU33Z Insertion of Infusion Device into Spinal Canal, Percutaneous Approach (ICD-10-PCS; 2017-01-23)
PROC: 3E0R3BZ Introduction of Anesthetic Agent into Spinal Canal, Percutaneous Approach (ICD-10-PCS; 2017-01-23)
DX: O70.0 First degree perineal laceration during delivery (principal); O69.1XX0 Labor and delivery complicated by cord around neck, with compression, not applicable or unspecified; Z3A.40 40 weeks gestation of pregnancy; Z37.0 Single live birth
CPT/HCPCS: 36415; 51702; 59300; 59409; 85025; 85027; 86850; 86900; 86901; A9270-GY; J2210; J2405; J2590; J3010; J7120